=== PATIENT | female | born 1970 | race African-American/Black ===

== ENCOUNTER 2017-08-22 18:17 | Emergency (ER) | payer MEDICAID ==
[~2017-08-22] VITALS: Ht 165.1 cm; Wt 104.5 kg
[2017-08-22] MEDS ORDERED: ALBUTEROL SULFATE 2.5 MG/0.5 ML NEB SOLUTION NEB ONE (19:15)
[2017-08-22] MEDS ORDERED: IPRATROPIUM BROMIDE 0.5 MG/2.5 ML NEB SOLUTION NEB ONE (19:15)
[2017-08-22 20:27] VITALS: BP 128/74
== END 2017-08-22 21:28 | disposition home or self-care (01) ==
LOC: EMS 18:18
DX: J45.901 Unspecified asthma with (acute) exacerbation (principal); B34.9 Viral infection, unspecified; Z88.0 Allergy status to penicillin
CPT/HCPCS: 71046; 94640; 99284; J7613